=== PATIENT | male | born 1955 | race Two or more races ===

== ENCOUNTER 2023-01-26 13:26 | Inpatient (IN) | payer OTHER ==
[~2023-01-26] VITALS: Ht 175.3 cm; Wt 92.1 kg
[2023-01-26] MEDS ORDERED: ELIQUIS5 MG (13:34)
[2023-01-26] MEDS ORDERED: TOPROL XL25 M1 PO (13:35)
== END 2023-01-30 12:37 | disposition home or self-care (01) | DRG 375 ==
LOC: ER 13:26 → SURG 19:53
PROVIDERS: ADMIT Colon & Rectal Surgery; ATTEND Colon & Rectal Surgery
PROC: BW21YZZ Computerized Tomography (CT Scan) of Abdomen and Pelvis using Other Contrast (ICD-10-PCS; 2023-01-26)
PROC: B246ZZZ Ultrasonography of Right and Left Heart (ICD-10-PCS; 2023-01-27)
PROC: 4A12X4Z Monitoring of Cardiac Electrical Activity, External Approach (ICD-10-PCS; 2023-01-27)
PROC: 02HV33Z Insertion of Infusion Device into Superior Vena Cava, Percutaneous Approach (ICD-10-PCS; 2023-01-27)
PROC: 0DBP8ZX Excision of Rectum, Via Natural or Artificial Opening Endoscopic, Diagnostic (ICD-10-PCS; principal; 2023-01-28)
DX: C20 Malignant neoplasm of rectum (principal); K62.5 Hemorrhage of anus and rectum; K62.89 Other specified diseases of anus and rectum; I48.91 Unspecified atrial fibrillation; I10 Essential (primary) hypertension

== ENCOUNTER 2023-08-25 05:40 | Day surgery (SDC) | payer OTHER ==
[~2023-08-25 05:40] MED LIST: ELIQUIS5 MG; TOPROL XL25 M1 PO
== END 2023-08-25 13:25 | disposition home or self-care (01) ==
LOC: AMB-ENDOS 05:40
PROVIDERS: ATTEND Colon & Rectal Surgery
DX: D12.8 Benign neoplasm of rectum (principal); K62.6 Ulcer of anus and rectum; K92.1 Melena; Z20.822 Contact with and (suspected) exposure to COVID-19; Z88.0 Allergy status to penicillin

== ENCOUNTER → 2024-11-15 15:06 | Outpatient (CLI) | payer OTHER ==
[~2024-11-15 15:06] MED LIST changes: +HYOSCYAMINE0.125 M1 SL; +ZESTRIL2.5 MG PO
[2024-11-15 15:47] LABS: INR 1.24; PARTIAL THROMBOPLASTIN TIME 24.9 SECONDS (22.0-34.0); PROTHROMBIN TIME 13.3 SECONDS (9.0-11.5)
[2024-11-15 16:04] LABS: COL EPI 80 SECONDS (82-175)
== END | disposition home or self-care (01) ==
LOC: LAB 15:06
PROVIDERS: ATTEND Internal Medicine Geriatric Medicine
DX: D68.9 Coagulation defect, unspecified (principal)